=== PATIENT | male | born 1975 | race Hispanic/Latino ===

== ENCOUNTER 2018-07-08 11:47 | Outpatient (CLI) | payer OTHER ==
[2018-07-08 15:14] LABS: #Eosinphils 0.2 thou/uL (0.0-0.7); #Lymphocytes 2.5 thou/uL (1.20-3.40); #Monocytes 0.7 thou/uL (0.11-0.59); #Neutrophils 3.3 thou/uL (1.40-6.50); %Basophils 0.6 % (0.0-1.0); %Eosinophils 2.9 % (0.0-10.0); %Lymphocytes 37.4 % (21.0-51.0); %Monocytes 10.9 % (0.0-10.0); %Neutrophils 48.3 % (42.0-75.0); Hemoglobin 15.1 g/dL (14.0-18.0); Mean Corpuscular HGB CONC 33.1 g/dL (32.0-36.0); Mean Corpuscular Hemoglobin 30.7 pg (27.0-31.0); Mean Corpuscular Volume 92.7 fL (78.0-98.0); Mean Platelet Volume 6.8 fL (7.4-10.4); Platelet Count 305 thou/uL (130-400); RBC Distribution Width 11.9 % (11.5-14.5); Red Blood Cell (RBC) Count 4.92 mill/uL (4.70-6.10); White Blood Cell (WBC) Count 6.8 thou/uL (4.8-10.8)
[2018-07-08 15:34] LABS: ALT (SGPT) 47 U/L (8-55); AST (SGOT) 30 U/L (5-34); Albumin 3.9 g/dL (3.5-5.0); Alkaline Phosphatase 68 U/L (40-150); Anion Gap 13 mmol/L (10-20); BUN (Urea Nitrogen) 17 mg/dL (8.9-20.6); Bilirubin, Direct 0.1 mg/dL (0.1-0.3); Bilirubin, Total 0.3 mg/dL (0.2-1.2); Calc. Creatinine Clearance 0 mL/min (70-130); Calcium 9.1 mg/dL (7.8-10.44); Carbon Dioxide 24 mmol/L (22-29); Chloride 107 mmol/L (98-107); Estimated GFR-MDRD Greater than 90; Glucose 108 mg/dL (70-105); Potassium 3.7 mmol/L (3.5-5.1); Protein, Total 6.9 g/dL (6.0-8.3); Sodium 140 mmol/L (136-145)
== END 2018-07-08 11:48 | disposition home or self-care (01) ==
LOC: LABBT 11:47
PROVIDERS: ATTEND Surgery
DX: Z01.812 Encounter for preprocedural laboratory examination (principal); K80.20 Calculus of gallbladder without cholecystitis without obstruction
CPT/HCPCS: 80048; 80076; 85025

== ENCOUNTER 2018-07-10 09:56 | Day surgery (SDC) | payer OTHER, SELFPAY ==
[2018-07-09 11:21] VITALS: BMI 37.8
[2018-07-10] MEDS ORDERED: Iothalamate Meglumine 60% 50 ML VIAL FS ONE (10:21)
[2018-07-10] MEDS ORDERED: Bupivacaine/Epinephrine 0.25% 30 ML VIAL ONE (10:21)
[2018-07-10] MEDS ORDERED: Fentanyl 100 MCG/2 ML VIAL ONE ×2 (11:37)
[2018-07-10] MEDS ORDERED: Lidocaine 2% Jelly 5 ML TUBE ONE (11:46)
--- NOTE | 2018-07-10 16:17 | RAD ---
EXAM: XR Cholangiogram in Surgery PROVIDED CLINICAL HISTORY: Cholelithiasis. COMPARISON: None available FINDINGS/IMPRESSION: 2 intraoperative fluoroscopic images from an intraoperative cholangiogram are submitted for interpret ation. Surgical instruments overlie the right upper quadrant. Nasogastric tube is partially imaged overlying the medial left upper quadrant. Visualized portions of the common duct and limited visualiz ed proximal intrahepatic ducts appear normal in caliber. No definite filling defect is appreciated on the provided images. There is evidence of free spill of contrast into the duodenum. Correlation wi intraoperative findings is recommended.
[2018-07-10] MEDS ORDERED: PHENYLEPHRINE-NS 100 MCG/ML 10 ML SYRINGE ONE (16:25)
[2018-07-10] MEDS ORDERED: Ondansetron PF 4 MG/2 ML Vial ONE (16:25)
[2018-07-10] MEDS ORDERED: PROPOFOL 200 MG/20 ML VIAL ONE (16:25)
[2018-07-10] MEDS ORDERED: Dexamethasone 20 MG/5 ML VIAL ONE (16:25)
[2018-07-10] MEDS ORDERED: Ketorolac Tromethamine 30 MG/ML VIAL ONE (16:25)
[2018-07-10] MEDS ORDERED: Lidocaine 1% PF 5 ML VIAL ONE (16:25)
[2018-07-10] MEDS ORDERED: Rocuronium Bromide 10 MG/ML (10ML VIAL) ONE (16:25)
[2018-07-10] MEDS ORDERED: Glycopyrrolate 0.2 MG/ML 5 ML SYRINGE ONE (16:25)
[2018-07-10] MEDS ORDERED: ePHEDrine 50 MG/ML VIAL ONE (16:25)
--- NOTE | 2018-07-11 13:42 | OP ---
DATE OF PROCEDURE: 07/10/2018 PREOPERATIVE DIAGNOSIS: Acute cholecystitis. POSTOPERATIVE DIAGNOSIS: Acute cholecystitis. PROCEDURE PERFORMED: Laparoscopic cholecystectomy with intraoperative cholangiogram. ANESTHESIA: General. ESTIMATED BLOOD LOSS: None. COMPLICATIONS: None. SPECIMENS: Gallbladder. FINDINGS: Chronic cholecystitis, normal cholangiogram. TECHNIQUE: The patient was taken to the operating room and laid supine on the operating room table. After general anesthetic was obtained, the abdomen was shaved, prepped, and draped in a sterile fashion. A curved incision was made below the umbilicus. Cautery was dissected down to and score the fascia. Abdominal cavity was entered bluntly using a Brandy clamp. Holding stitch of PDS was placed on each side of the fascia. Anand trocar was placed. High-flow pneumoperitoneum was obtained. Upper midline 5 mm port and two right upper quadrant 5 mm ports were placed under direct visualization. Gallbladder was retracted from gallbladder fossa. The peritoneum was opened anteriorly and posteriorly. The critical view triangle was seen showing only the cystic duct and cystic artery branching from medial to lateral. There were no other branching structures. Clip was placed on the cystic duct. A small ductotomy was made just proximal to that. Cholangiocatheter was brought in through a separate stab incision, placed in the cystic duct and cholangiogram was performed, which shows good contrast flow into the duodenum without obstruction. The cholangiocatheter was removed and 2 clips were placed proximally on the cystic duct. It was cut using laparoscopic scissors. Cystic artery was taken using 2 clips proximally and 1 clip distally, and cut using laparoscopic scissors. The gallbladder was retracted from the gallbladder fossa. Gallbladder was placed in an EndoCatch bag and brought out through the Anand. There was no bleeding or bile in the liver bed. All port sites were infiltrated using local anesthetic. All ports were removed under camera visualization. Pneumoperitoneum was let down. The Maxon was used to close the fascial defect below the umbilicus. All incisions were irrigated and closed using 4-0 Monocryl and Dermabond. The patient was then returned to Recovery in stable condition. All instrument counts, needle counts, and lap counts were correct. Job ID: [id number]
== END 2018-07-10 15:45 | disposition home or self-care (01) ==
LOC: SDC 09:56
PROVIDERS: ATTEND Surgery
PROC: BF101ZZ Fluoroscopy of Bile Ducts using Low Osmolar Contrast (ICD-10-PCS; principal; 2018-07-10)
PROC: 0FT44ZZ Resection of Gallbladder, Percutaneous Endoscopic Approach (ICD-10-PCS; principal; 2018-07-10)
DX: K80.12 Calculus of gallbladder with acute and chronic cholecystitis without obstruction (principal); Z87.891 Personal history of nicotine dependence
CPT/HCPCS: 47532; 88304; J0690; J1100; J1885; J2001; J2405; J2704; J3010; J3490; Q9961